=== PATIENT | female | born 1965 | race Native Hawaiian/Other Pacific Islander ===

== ENCOUNTER 2022-08-02 13:39 | Outpatient (CLI) | payer OTHER | END 2022-08-02 21:21 | disposition home or self-care (01) | LOC: MAMMO 13:39 | PROVIDERS: ATTEND Internal Medicine | DX: Z12.31 Encounter for screening mammogram for malignant neoplasm of breast (principal) ==

== ENCOUNTER 2022-09-21 11:04 | Outpatient (CLI) | payer OTHER | END 2022-09-21 19:23 | disposition home or self-care (01) | LOC: US 11:04 | PROVIDERS: ATTEND Internal Medicine | DX: R92.8 Other abnormal and inconclusive findings on diagnostic imaging of breast (principal) ==